=== PATIENT | male | born 1950 | race Caucasian/White ===

== ENCOUNTER → 2023-09-21 08:49 | Outpatient (REF) | payer MEDICARE, SELFPAY | LOC: RAD 08:49 | PROVIDERS: ATTENDING PHYSICIAN Surgery Vascular Surgery | DX: I73.9 Peripheral vascular disease, unspecified (principal); I65.23 Occlusion and stenosis of bilateral carotid arteries | CPT/HCPCS: 93880; 93922; 93925; 93978 ==

== ENCOUNTER → 2024-09-26 09:06 | Outpatient (REF) | payer MEDICARE, SELFPAY | LOC: RAD 09:06 | PROVIDERS: ATTENDING PHYSICIAN Surgery Vascular Surgery | DX: I73.9 Peripheral vascular disease, unspecified (principal); I65.21 Occlusion and stenosis of right carotid artery | CPT/HCPCS: 93880; 93922; 93925; 93978 ==